=== PATIENT | female | born 1945 | race Caucasian/White ===

== ENCOUNTER → 2024-12-15 10:13 | Outpatient (REF) | payer MEDICARE, SELFPAY | LOC: HWRCS 10:13 | PROVIDERS: ATTENDING PHYSICIAN Internal Medicine Cardiovascular Disease; FAMILY PHYSICIAN Family Medicine | DX: R01.1 Cardiac murmur, unspecified (principal) | CPT/HCPCS: 93306 ==

== ENCOUNTER → 2025-01-05 09:19 | Outpatient (REF) | payer MEDICARE, SELFPAY ==
[2025-01-05 12:55] LABS: HDL Cholesterol 100 mg/dl; LDL Cholesterol, Calculated 82 mg/dl; Total Cholesterol 206 mg/dl (50-199); Triglyceride 121 mg/dl (10-149); Very Low Density Lipoprotein 24 mg/dl (0-30)
[2025-01-05 13:14] LABS: TSH 0.32 uIU/ml (0.47-4.68)
== END ==
LOC: HWLAB 09:19
PROVIDERS: ATTENDING PHYSICIAN Family Medicine
DX: E78.00 Pure hypercholesterolemia, unspecified (principal)
CPT/HCPCS: 36415; 80061; 84443

== ENCOUNTER → 2025-04-01 10:46 | Outpatient (REF) | payer MEDICARE, SELFPAY ==
[2025-04-01 14:18] LABS: TSH 2.05 uIU/ml (0.47-4.68)
== END ==
LOC: HWLAB 10:46
PROVIDERS: ATTENDING PHYSICIAN Family Medicine
DX: E03.9 Hypothyroidism, unspecified (principal)
CPT/HCPCS: 36415; 84443

== ENCOUNTER → 2025-08-12 08:49 | Outpatient (REF) | payer MEDICARE, SELFPAY | LOC: HWRAD 08:49 | PROVIDERS: ATTENDING PHYSICIAN Family Medicine | DX: Z78.0 Asymptomatic menopausal state (principal) | CPT/HCPCS: 77080 ==

== ENCOUNTER 2025-09-07 07:27 | Outpatient (RCR) | payer MEDICARE, SELFPAY | END 2025-09-07 23:59 | disposition home or self-care (01) | LOC: RPT 07:27 | PROVIDERS: ATTENDING PHYSICIAN Orthopaedic Surgery; FAMILY PHYSICIAN Family Medicine | DX: M43.16 Spondylolisthesis, lumbar region (principal); M62.830 Muscle spasm of back; Z73.6 Limitation of activities due to disability; R29.3 Abnormal posture; R26.81 Unsteadiness on feet; R26.89 Other abnormalities of gait and mobility | CPT/HCPCS: 97110; 97112; 97162; 97535 ==